=== PATIENT | female | born 1980 | race Caucasian/White ===

== ENCOUNTER 2017-12-31 17:03 | Emergency (ER) | payer OTHER, SELFPAY ==
--- NOTE | 2017-12-31 17:05 | ED.UPPEXIN ---
HPI - Extremity Injury (Upper) <MAX Ling - Last Filed: 12/31/17 22:13> General Chief Complaint: Extremity Injury, Upper Stated Complaint: 'TOOK SOFTBALL PITCH TO BOTH HANDS' Time Seen by Provider: 12/31/17 17:05 History of Present Illness HPI narrative: 37-year-old female here for complaint of pain into bilateral wrist. She she was on prior at a softball game for gross today when she was accidentally hit with a softball on of both wrist on different pitches. She denies any other injuries. Increased pain with motion of the wrists. Patient has a history of decreased sensation to both hands status post cervical neck surgery repair. No other concerns or complaints. Related Data Home Medications Medication Instructions Recorded Confirmed DICLOFENAC EPOLAMINE (FLECTOR) 1 patch TP Q DAY #0 10/13/12 duloxetine [Cymbalta] 60 mg PO Q DAY #0 10/13/12 Allergies Allergy/AdvReac Type Severity Reaction Status Date / Time ibuprofen [IBUPROFEN] Allergy Unknown Unverified 11/23/17 12:14 Review of Systems <MAX Ling - Last Filed: 12/31/17 22:13> Constitutional Denies chills, Denies fever(s), Denies lethargy and Denies weakness Eyes Denies change in vision, Denies eye discharge, Denies irritation and Denies loss of vision ENT Ears, Nose, Mouth, and Throat: Denies change in voice, Denies neck pain and Denies sore throat Cardiovascular Denies dyspnea and Denies dyspnea on exertion Respiratory Denies cough, Denies dyspnea, Denies dyspnea on exertion and Denies wheezing Genitourinary Denies hematuria, Denies flank pain, Denies urinary incontinence and Denies urinary urgency Musculoskeletal Denies neck pain Comments: Bilateral wrist pain Integumentary/Breasts Denies pruritus, Denies erythema, Denies rash and Denies wounds Neurologic Denies loss of vision and Denies weakness Allergic/Immunologic Denies wheezing Exam <MAX Ling - Last Filed: 12/31/17 22:13> Initial Vital Signs Initial Vital Signs: Vital Signs Temperature 98.8 F 12/31/17 17:16 Pulse Rate 90 12/31/17 17:16 Respiratory Rate 13 12/31/17 17:16 Blood Pressure 133/86 H 12/31/17 17:16 Pulse Oximetry 99 12/31/17 17:16 Const General: cooperative and well developed Nutritional Appearance: well nourished Orientation: alert, awake, oriented x3 and not confused [facility] Mouth: oral mucosae normal, oropharynx normal and moist mucous membranes Eyes Conjunctivae: conjunctivae normal Sclera: sclerae normal Pupils: PERRL EOM: EOM intact bilaterally Resp Effort & Inspection: normal respiratory effort, able to speak in complete sentences, no respiratory distress and no use of accessory muscles Auscultation: clear to auscultation bilaterally, no rales, no rhonchi and no wheezes Cardio Rate: regular rate Rhythm: regular rhythm Heart Sounds: no click, no gallops, no murmurs and no rubs Skin General: no rashes or lesions noted, No jaundice and No petechiae Extrem Other: Bilateral wrist with tenderness to palpation. No deformities. No ecchymosis. No swelling. Distal sensation is not intact to the fingertips which is not new finding for patient. Distal cap refill is intact. Full range of motion distally. Patient has slight discomfort a 2 bilateral anatomic snuffboxes. <Leonel Nolan, DO - Last Filed: 01/19/18 07:43> Initial Vital Signs Initial Vital Signs: Vital Signs Temperature 98.8 F 12/31/17 17:16 Pulse Rate 90 12/31/17 17:16 Respiratory Rate 13 12/31/17 17:16 Blood Pressure 133/86 H 12/31/17 17:16 Pulse Oximetry 99 12/31/17 17:16 Course <MAX Ling - Last Filed: 12/31/17 22:13> Orders Ordered: Discontinued Medications Hydrocodone Bitart/Acetaminophen ([place] 5/325) 2 tab PO NOW ONE Stop: 12/31/17 18:10 Last Admin: 12/31/17 18:27 Dose: 2 tab Hydrocodone Bitart/Acetaminophen (Vicodin Prepack) 1 bottle MISC SEEINSTR ONE Stop: 12/31/17 18:10 Last Admin: 12/31/17 18:27 Dose: 1 bottle Vital Signs - 8 hr 12/31/17 17:16 Temperature 98.8 F Pulse Rate 90 Respiratory Rate 13 Blood Pressure 133/86 H Pulse Oximetry 99 <Leonel Nolan DO - Last Filed: 01/19/18 07:43> Orders Ordered: Discontinued Medications Hydrocodone Bitart/Acetaminophen ([place] 5/325) 2 tab PO NOW ONE Stop: 12/31/17 18:10 Last Admin: 12/31/17 18:27 Dose: 2 tab Hydrocodone Bitart/Acetaminophen (Vicodin Prepack) 1 bottle MISC SEEINSTR ONE Stop: 12/31/17 18:10 Last Admin: 12/31/17 18:27 Dose: 1 bottle Vital Signs - 8 hr 12/31/17 17:16 Temperature 98.8 F Pulse Rate 90 Respiratory Rate 13 Blood Pressure 133/86 H Pulse Oximetry 99 MDM - Extremity Injury (Upper) <MAX Ling - Last Filed: 12/31/17 22:13> Imaging Data Right wrist : Radiologist's impression: PROCEDURE: XR WRIST RT MIN 3V INDICATIONS: HIT WITH BASEBALL TECHNIQUE: 4 views of the wrist were acquired. COMPARISON: None. FINDINGS: Bones: No fractures or dislocations. No suspicious bony lesions. Scaphoid view: Negative Soft tissues: No suspicious soft tissue calcifications. IMPRESSION: No acute fracture. No osseous lesion. If clinical suspicion and/or symptoms persist, further assessment with repeat plainfilms, or advanced imaging (e.g., CT, MRI, or bone scan) may be helpful for further assessment. Left wrist: Radiologist's impression: PROCEDURE: XR WRIST LT MIN 3V INDICATIONS: HIT WITH BASEBALL TECHNIQUE: 4 views of the wrist were acquired. COMPARISON: None. FINDINGS: Bones: No fractures or dislocations. No suspicious bony lesions. Scaphoid view: Negative Soft tissues: No suspicious soft tissue calcifications. IMPRESSION: No acute fracture. No osseous lesion. If clinical suspicion and/or symptoms persist, further assessment with repeat plainfilms, or advanced imaging (e.g., CT, MRI, or bone scan) may be helpful for further assessment. [facility] Narrative Medical decision making narrative: X-ray of bilateral wrist was negative for any acute fractures. Signs and symptoms presents as contusions to bilateral wrists. Do to stop box tenderness bilaterally she is placed splints bilaterally she is instructed to have repeat films in 7-10 days to rule out occult fracture. [id number] Tylenol as needed for any discomfort. Small amount of [place] is prescribed for breakthrough pain. For any worsening symptoms return to the emergency room. Discharge Plan Departure Patient Disposition: Home, Self-Care Clinical Impression: Contusion of left wrist, Contusion of right wrist Discharge Date/Time: 12/31/17 18:38 Interventions: ED Discharge Assessment Last Done: 12/31/17 18:38 Instructions: DI for Contusion Activity Restrictions/Additional Instructions: X-ray bilateral wrist was negative for any fractures. Signs and symptoms presents as a bruises/sprains of the wrist. However due to tenderness in the anatomical snuffbox area recommend wearing splints as provided until cleared by primary care have repeat films completed in 7-10 days. Use [id number] Tylenol as needed for any discomfort. Small amount of [place] was provided for breakthrough pain use as directed no driving while on the [place]. For any worsening symptoms return to the emergency room. Prescriptions: No Action duloxetine [Cymbalta] 60 MG capsule,delayed release(DR/EC) 60 mg PO Q DAY Qty: 0 RF: 0 DICLOFENAC EPOLAMINE (FLECTOR) 1 patch TP Q DAY Qty: 0 RF: 0 Referrals: [facility] [Provider Group]
--- NOTE | 2017-12-31 17:15 | DI.RAD.S_ITS ---
PROCEDURE: XR WRIST LT MIN 3V INDICATIONS: HIT WITH BASEBALL TECHNIQUE: 4 views of the wrist were acquired. COMPARISON: None. FINDINGS: Bones: No fractures or dislocations. No suspicious bony lesions. Scaphoid view: Negative Soft tissues: No suspicious soft tissue calcifications. IMPRESSION: No acute fracture. No osseous lesion. If clinical suspicion and/or symptoms persist, further assessment with repeat plainfilms, or advanced imaging (e.g., CT, MRI, or bone scan) may be helpful for further assessment. Dictated by: Pierre Sloan M.D. on 12/31/2017 at 17:46 Approved by: Pierre Sloan M.D. on 12/31/2017 at 17:47
--- NOTE | 2017-12-31 17:15 | DI.RAD.S_ITS ---
PROCEDURE: XR WRIST RT MIN 3V INDICATIONS: HIT WITH BASEBALL TECHNIQUE: 4 views of the wrist were acquired. COMPARISON: None. FINDINGS: Bones: No fractures or dislocations. No suspicious bony lesions. Scaphoid view: Negative Soft tissues: No suspicious soft tissue calcifications. IMPRESSION: No acute fracture. No osseous lesion. If clinical suspicion and/or symptoms persist, further assessment with repeat plainfilms, or advanced imaging (e.g., CT, MRI, or bone scan) may be helpful for further assessment. Dictated by: Pierre Sloan M.D. on 12/31/2017 at 17:47 Approved by: Pierre Sloan M.D. on 12/31/2017 at 17:47
[2017-12-31 17:16] VITALS: BP 133/86; PULSE 90; RESP 13; TEMP 37.1; O2SAT 99
[2017-12-31] MEDS: HYDROCODONE/ACET 5/325 PREPACK 1 BOTTLE MISC (18:27)
[2017-12-31] MEDS: HYDROCODONE/ACET 5/325 TABLET 2 TAB PO (18:27)
== END 2017-12-31 18:38 | disposition home or self-care (01) ==
PROVIDERS: Emergency Provider Nurse Practitioner Family
DX: S60.212A Contusion of left wrist, initial encounter (principal); S60.211A Contusion of right wrist, initial encounter; W21.07XA Struck by softball, initial encounter; Y93.64 Activity, baseball
CPT/HCPCS: 29260; 73110; 99283

== ENCOUNTER 2018-04-16 20:33 | Emergency (ER) | payer OTHER, SELFPAY ==
[2018-04-16 20:35] VITALS: BP 154/101; PULSE 86; RESP 18; TEMP 36.2; O2SAT 100; BMI 34.2
--- NOTE | 2018-04-16 20:45 | ED.ABDPAIN ---
HPI - Abdominal Pain General Chief Complaint: Abdominal Pain Stated Complaint: ABD PAIN,NAUSEA AND LOW GRADE FEVER Time Seen by Provider: 04/16/18 20:35 Source: patient Mode of arrival: ambulatory Limitations: no limitations History of Present Illness HPI narrative: Patient presents to the emergency department with a chief complaint of severe epigastric pain with radiation to the back for the past few days. Her pain is significantly worse when she eats or drinks. Every time she eats she gets significant pain and nausea with occasional episode of vomiting. She is not dizzy nor weak or lightheaded. She has had a low-grade subjective fever. She has been told she has gallbladder trouble in the past but has never had a complete evaluation. She denies chest pain or shortness of breath MD complaint: abdominal pain Onset (ago): day(s) Pain Consistency: intermittent Location: epigastric Severity: moderate Quality: cramping and stabbing Radiation: back Relieving factors: nothing Exacerbating factors: eating Associated symptoms: nausea and vomiting Related Data Home Medications Medication Instructions Recorded Confirmed hydrocodone-acetaminophen 1 tab PO QID PRN 04/16/18 04/16/18 naproxen sodium [Aleve] 440 mg PO BID 04/16/18 04/16/18 Previous Rx's Medication Instructions Recorded ondansetron [Zofran ODT] 4 mg PO Q6H PRN #14 tab 04/16/18 oxycodone-acetaminophen [Percocet] 1 tab PO Q4-6H PRN #20 tab 04/16/18 Allergies Allergy/AdvReac Type Severity Reaction Status Date / Time ibuprofen [IBUPROFEN] Allergy Severe Anaphylaxis Verified 04/16/18 20:38 Review of Systems Review of Systems All systems reviewed & are unremarkable except as noted in HPI and below Constitutional Denies chills, Reports fever(s), Denies lethargy and Denies weakness Eyes Denies change in vision, Denies eye discharge, Denies irritation and Denies loss of vision ENT Ears, Nose, Mouth, and Throat: Denies change in voice, Denies neck pain and Denies sore throat Cardiovascular Denies chest pain, Denies irregular heart rhythm, Denies lightheadedness, Denies palpitations, Denies dyspnea, Denies dyspnea on exertion and Denies orthopnea Respiratory Denies cough, Denies dyspnea, Denies dyspnea on exertion and Denies wheezing Gastrointestinal Gastrointestinal: Reports abdominal pain, Denies change in bowel habits, Denies diarrhea, Denies nausea and Reports vomiting Genitourinary Denies hematuria, Denies flank pain, Denies urinary incontinence and Denies urinary urgency Musculoskeletal Denies neck pain Integumentary/Breasts Denies pruritus, Denies erythema, Denies rash and Denies wounds Neurologic Denies confusion, Denies loss of vision and Denies weakness Psychiatric Denies anxiety, Denies confusion, Denies depression, Denies homicidal ideation and Denies suicidal ideation Endocrine Denies palpitations Hematologic/Lymphatic Denies easy bruising Allergic/Immunologic Denies wheezing [facility] Social History Smoking Status: Current every day smoker Exam Narrative Exam Narrative: 38-year-old female is very uncomfortable, obviously in pain Initial Vital Signs Initial Vital Signs: Vital Signs Temperature 97.1 F L 04/16/18 20:35 Pulse Rate 86 04/16/18 20:35 Respiratory Rate 18 04/16/18 20:35 Blood Pressure 154/101 H 04/16/18 20:35 Pulse Oximetry 100 04/16/18 20:35 Const General: cooperative and well developed Nutritional Appearance: well nourished Orientation: alert, awake, oriented x3 and not confused [facility] Head: normocephalic and atraumatic Ears: external ears normal and TM's normal bilaterally Nose: external nose normal and No nasal discharge Face and sinus: sinuses nontender, face symmetric, no sinus tenderness and No dry mucous membranes Mouth: oral mucosae normal and moist mucous membranes Teeth and gingiva: dentition normal Throat: tonsils normal and uvula midline Eyes General: appearance normal, both eyes and all related structures Eyelids: eyelids normal Conjunctivae: conjunctivae normal Sclera: sclerae normal Pupils: PERRL EOM: EOM intact bilaterally Neck Neck: normal visual inspection, trachea midline, No lymphadenopathy, No midline deformity and No JVD Lymphatic: No lymphedema Chest Chest: normal inspection of the chest Resp Effort & Inspection: normal respiratory effort, able to speak in complete sentences, no respiratory distress and no use of accessory muscles Auscultation: clear to auscultation bilaterally, no rales, no rhonchi and no wheezes Cardio Rate: regular rate Rhythm: regular rhythm Heart Sounds: no click, no gallops, no murmurs and no rubs Pulses: normal peripheral pulses GI Inspection: non-distended Palpation: soft, no hepatosplenomegaly, No guarding, No pulsatile mass and tender (Significant epigastric pain on palpation at Coppola's point) Auscultation: normal bowel sounds Back/Spine/Pelvis Back: No CVA tenderness Cervical Spine: cervical ROM normal and No pain with cervical ROM Thoracic/Lumbar Spine: thoracic and lumbar spine normal to inspection Skin General: no rashes or lesions noted, No jaundice and No petechiae Neuro General: alert, oriented x3, gait normal and no focal motor deficits Speech: speech normal Extrem General: full ROM, no clubbing, cyanosis or edema, no pedal edema and no calf tenderness Psych Appearance: well kempt Mental Status: mental status grossly normal Attitude: cooperative Thought Content: normal and suicidality Judgment: judgment good Course Orders Ordered: Discontinued Medications Hydromorphone HCl (Dilaudid) 0.5 mg IV NOW ONE Stop: 04/16/18 20:57 Last Admin: 04/16/18 21:07 Dose: 0.5 mg Sodium Chloride (Normal Saline 0.9%) 1,000 mls @ 1,000 mls/hr IV BOLUS ONE Stop: 04/16/18 21:55 Last Infusion: 04/16/18 23:07 Dose: 0 mls/hr Admin: 04/16/18 21:07 Dose: 1,000 mls/hr Ondansetron HCl (Zofran) 4 mg IV NOW ONE Stop: 04/16/18 20:41 Last Admin: 04/16/18 21:07 Dose: 4 mg Ondansetron HCl (Zofran) 4 mg IV NOW ONE Stop: 04/16/18 20:57 Last Admin: 04/16/18 23:07 Dose: Not Given Ondansetron HCl (Zofran Odt Prepack) 1 bottle MISC SEEINSTR ONE Stop: 04/16/18 22:44 Last Admin: 04/16/18 23:07 Dose: 1 bottle Oxycodone/Acetaminophen (Endocet 5/325 Prepack) 1 bottle MISC SEEINSTR ONE Stop: 04/16/18 22:44 Last Admin: 04/16/18 23:07 Dose: 1 bottle Vital Signs - 8 hr 04/16/18 23:08 Pulse Rate 68 Respiratory Rate 16 Blood Pressure 109/63 Pulse Oximetry 98 MDM - Abdominal Pain Differential Diagnosis Differential diagnosis: Likely abdominal pain, acute appendicitis, calculus of kidney, constipation, diverticulitis, endometriosis, gastroenteritis, pancreatitis and small bowel obstruction Medical Records Attestation: I reviewed the patient's medical records. Lab Data Attestation: I reviewed the patient's lab results. Result diagrams: 04/16/18 21:00 04/16/18 21:00 Lab Results 04/16/18 04/16/18 04/16/18 Range/Units 21:00 21:00 21:38 WBC 11.2 H (4.5-11.0) X10^3/uL RBC 5.11 (4.0-5.2) X10^6/uL Hgb 15.5 (12.0-16.0) g/dL Hct 45.7 (36-46) % MCV 89.5 (80-100) fL MCH 30.3 (26-34) PG MCHC 33.8 (30-36) % RDW 13.8 (11.6-14.8) % Plt Count 266 (150-400) X10^3/uL Neut % (Auto) 52.2 (50-75) % Lymph % (Auto) 35.1 (25-40) % [place] % (Auto) 9.5 (3-14) % Eos % (Auto) 2.1 (2-4) % Baso % (Auto) 1.1 (0-2) % Neut # (Auto) 5800 (9942-5799) /uL PT 12.1 (10.1-12.7) SECONDS INR 1.1 (0.9-1.3) APTT 32 (26.4-36.2) SECONDS Sodium 146 H (137-145) mmol/L Potassium 3.9 (3.4-5.1) mmol/L Chloride 109 H (98-107) mmol/L Carbon Dioxide 25 (22-32) mmol/L BUN 11 (7-17) mg/dL Creatinine 0.90 (0.52-1.04) mg/dL Estimated GFR > 60.0 (>60) mL/min BUN/Creatinine Ratio 12.2 (6-22) Glucose 80 (70-100) mg/dL Calcium 9.4 (8.4-10.2) mg/dL Total Bilirubin 0.4 (0.2-1.3) mg/dL AST 17 (14-36) IU/L ALT 24 (9-52) IU/L Alkaline Phosphatase 71 (38-126) U/L Total Protein 7.6 (6.3-8.2) g/dL Albumin 4.6 (3.5-5.0) g/dL Globulin 3.0 (1.7-4.1) g/dL Albumin/Globulin Ratio 1.5 (1.0-2.8) Lipase 88 (23-300) U/L Imaging Data US - abdomen: Radiologist's impression: PROCEDURE: US ABDOMEN COMPLETE INDICATIONS: SEVERE EPIGASTRIC PAIN RADIATING TO BACK TECHNIQUE: Real-time scanning was performed of the abdominal and retroperitoneal organs, with image documentation. COMPARISON: None. FINDINGS: Liver: Liver is normal in size and homogeneous in echotexture. Gallbladder: Gallbladder is sonographically normal. No gallstones. No gallbladder wall thickening. No pericholecystic fluid. No sonographic Coppola sign. Biliary ducts: Intrahepatic bile ducts are non-dilated. Extrahepatic bile duct caliber measures 5.7 mm. Normal is 6-7 mm or less in diameter, or 10 mm or less post-cholecystectomy. Pancreas: Visualized portions of the pancreas are sonographically normal. Spleen: Spleen is normal in size and homogeneous in echotexture. Kidneys: Kidneys are normal in size and echotexture. Right kidney measures 9.3 cm long; left kidney measures 10.6 cm long. No hydronephrosis or nephrolithiasis. No solid masses. Aorta: Visualized aorta is normal in caliber at less than 3 cm. Iliacs: Proximal common iliac arteries are normal in caliber at less than 2.5 cm. IVC: Intrahepatic inferior vena cava is patent. Miscellaneous: No free abdominal fluid. IMPRESSION: Normal abdominal sonogram. Dictated by: Karely Juarez MD, PhD on 04/16/2018 at 21:50 Approved by: Karely Juarez MD, PhD on 04/16/2018 at 21:51 MDM Narrative Medical decision making narrative: Patient's story and exam are highly suggestive of gallbladder disease, however given normal labs and ultrasound there is no indication of cholelithiasis or cholecystitis which would prompt an emergent or urgent surgical intervention. This raises the question of the possibility of HIDA scan in her future. We discussed the possibility of other imaging such as a CT scan but patient refuses right now Discharge Plan Departure Patient Disposition: Home Clinical Impression: Biliary colic Discharge Date/Time: 04/16/18 23:18 Interventions: ED Discharge Assessment Last Done: 04/16/18 23:08 Instructions: DI for Biliary Colic Activity Restrictions/Additional Instructions: 1. Drink plenty of fluids with frequent small sips. 2. For the next 24 hours a clear liquid diet is advised. After that please employ a brat diet which would include bananas, rice, apples, toast. 3. Please take medications as directed. 4. Please follow-up with your doctor in the next 1-2 days. Call the office for an appointment. 5. Please return to the emergency Department for any worsening or persistent symptoms, such as increasing pain or fever. Prescriptions: New ondansetron [Zofran ODT] 4 mg tablet,disintegrating 4 mg PO Q6H PRN (Reason: nausea and vomiting) Qty: 14 RF: 0 oxycodone-acetaminophen [Percocet] 5-325 mg tablet 1 tab PO Q4-6H PRN (Reason: pain) Qty: 20 RF: 0 No Action hydrocodone-acetaminophen 5-325 mg tablet 1 tab PO QID PRN (Reason: Pain (Scale Score 7-10)) RF: 0 naproxen sodium [Aleve] 220 mg Capsule 440 mg PO BID RF: 0 Referrals: Agustina Stone MD [Physician] -
--- NOTE | 2018-04-16 20:57 | DI.US.S_ITS ---
PROCEDURE: US ABDOMEN COMPLETE INDICATIONS: SEVERE EPIGASTRIC PAIN RADIATING TO BACK TECHNIQUE: Real-time scanning was performed of the abdominal and retroperitoneal organs, with image documentation. COMPARISON: None. FINDINGS: Liver: Liver is normal in size and homogeneous in echotexture. Gallbladder: Gallbladder is sonographically normal. No gallstones. No gallbladder wall thickening. No pericholecystic fluid. No sonographic Coppola sign. Biliary ducts: Intrahepatic bile ducts are non-dilated. Extrahepatic bile duct caliber measures 5.7 mm. Normal is 6-7 mm or less in diameter, or 10 mm or less post-cholecystectomy. Pancreas: Visualized portions of the pancreas are sonographically normal. Spleen: Spleen is normal in size and homogeneous in echotexture. Kidneys: Kidneys are normal in size and echotexture. Right kidney measures 9.3 cm long; left kidney measures 10.6 cm long. No hydronephrosis or nephrolithiasis. No solid masses. Aorta: Visualized aorta is normal in caliber at less than 3 cm. Iliacs: Proximal common iliac arteries are normal in caliber at less than 2.5 cm. IVC: Intrahepatic inferior vena cava is patent. Miscellaneous: No free abdominal fluid. IMPRESSION: Normal abdominal sonogram. Dictated by: Karely Juarez MD, PhD on 04/16/2018 at 21:50 Approved by: Karely Juarez MD, PhD on 04/16/2018 at 21:51
[2018-04-16] MEDS: HYDROMORPHONE 1 MG INJ 0.5 MG IV (21:07)
[2018-04-16] MEDS: SODIUM CHLORIDE 0.9% 1,000 ML 1000 ML IV (21:07)
[2018-04-16] MEDS: ONDANSETRON 4 MG/2 ML INJ IV (21:07)
[2018-04-16 21:25] LABS: Add Manual Diff / Slide Review NO; Basophils Percent Auto 1.1 % (0-2); Eosinophils Percent Auto 2.1 % (2-4); Hematocrit 45.7 % (36-46); Hemoglobin 15.5 g/dL (12.0-16.0); Lymphocytes Percent Auto 35.1 % (25-40); Mean Corpuscular HGB Conc 33.8 % (30-36); Mean Corpuscular Hemoglobin 30.3 PG (26-34); Mean Corpuscular Volume 89.5 fL (80-100); Monocytes Percent Auto 9.5 % (3-14); Neutrophils Absolute Auto 5800 /uL (3000-5900); Neutrophils Percent Auto 52.2 % (50-75); Platelet Count 266 X10^3/uL (150-400); Red Blood Cell Count 5.11 X10^6/uL (4.0-5.2); Red Cell Distribution Width 13.8 % (11.6-14.8); White Blood Cell Count 11.2 X10^3/uL (4.5-11.0)
[2018-04-16 21:28] LABS: Alanine Aminotransferase 24 IU/L (9-52); Albumin 4.6 g/dL (3.5-5.0); Albumin Globulin Ratio 1.5 (1.0-2.8); Alkaline Phosphatase 71 U/L (38-126); Aspartate Aminotransferase 17 IU/L (14-36); BUN Creatinine Ratio 12.2 (6-22); Bilirubin Total 0.4 mg/dL (0.2-1.3); Blood Urea Nitrogen 11 mg/dL (7-17); Calcium 9.4 mg/dL (8.4-10.2); Carbon Dioxide 25 mmol/L (22-32); Chloride 109 mmol/L (98-107); Estimated Glomerular Filt Rate > 60.0 mL/min (>60); Glucose 80 mg/dL (70-100); HEMOLYSIS < 15 (0-50); Lipase 88 U/L (23-300); Potassium 3.9 mmol/L (3.4-5.1); Sodium 146 mmol/L (137-145); Total Protein 7.6 g/dL (6.3-8.2)
[2018-04-16 21:53] LABS: INR 1.1 (0.9-1.3); Prothrombin Time 12.1 SECONDS (10.1-12.7)
[2018-04-16 21:56] LABS: PTT Partial Thromboplastin Tim 32 SECONDS (26.4-36.2)
[2018-04-16 22:05] VITALS: BP 114/70; PULSE 70; RESP 15; O2SAT 99
[2018-04-16] MEDS: ONDANSETRON 4 MG ODT PREPACK 1 BOTTLE MISC (23:07)
[2018-04-16] MEDS: OXYCODONE/APAP 5/325 PREPACK 1 BOTTLE MISC (23:07)
[2018-04-16 23:08] VITALS: BP 109/63; PULSE 68; RESP 16; O2SAT 98
== END 2018-04-16 23:18 | disposition home or self-care (01) ==
PROVIDERS: Emergency Provider Emergency Medicine
DX: K80.50 Calculus of bile duct without cholangitis or cholecystitis without obstruction (principal)
CPT/HCPCS: 36415; 36591; 76700; 80053; 83690; 85025; 85610; 85730; 96361; 96374; 96375; 96376; 99283; 99285; J1170; J2405

== ENCOUNTER 2020-10-03 10:16 | Emergency (ER) | payer OTHER, SELFPAY ==
[2020-10-03 10:22] VITALS: BP 172/98; PULSE 95; RESP 15; TEMP 36.9; O2SAT 99; BMI 35.4
--- NOTE | 2020-10-03 10:46 | ED.DENTAL ---
HPI - Dental/Oral <MAX Simon - Last Filed: 10/03/20 15:28> General Chief complaint: Dental/Oral Stated complaint: Upper Left side of mouth is infected (tooth) Time Seen by Provider: 10/03/20 10:35 Source: patient Mode of arrival: Ambulatory Limitations: no limitations History of Present Illness HPI Narrative: 40yo female presents to the emergency department for left-sided dental pain. Patient states she cracked a tooth filling approximately a month ago on both sides. She had a dentist appointment 2 weeks ago and fix the right side. She had an other appointment scheduled for October 29 to fix the left-sided area. However 2 days ago, the pain became increasingly worse and she noticed left-sided facial swelling. Patient was concern for infection so she called to move the appointment sooner, her dentist is currently on out on a family emergency and closes appointment is October 13. Patient states the area is very sensitive, it is difficult to open her mouth all the way to chew things due to the swelling and pain. Patient denies any fevers, chills, vomiting, diarrhea, chest pain, shortness of breath, numbness, tingling, or any other concerns. Related Data Home Medications Medication Instructions Recorded Confirmed hydrocodone-acetaminophen 1 tab PO QID PRN 04/16/18 04/16/18 naproxen sodium [Aleve] 440 mg PO BID 04/16/18 04/16/18 Previous Rx's Medication Instructions Recorded ondansetron [Zofran ODT] 4 mg PO Q6H PRN #14 tab 04/16/18 oxycodone-acetaminophen [Percocet] 1 tab PO Q4-6H PRN #20 tab 04/16/18 hydrocodone-acetaminophen [Clinton] 1 tab PO Q4-6H PRN #10 tab 10/03/20 penicillin V potassium 500 mg PO QID 7 Days #28 tab 10/03/20 Allergies Allergy/AdvReac Type Severity Reaction Status Date / Time ibuprofen [IBUPROFEN] Allergy Severe Anaphylaxis Verified 04/16/18 20:38 Review of Systems <MAX Simon - Last Filed: 10/03/20 15:28> Review of Systems Narrative: REVIEW OF SYSTEMS: GENERAL: Denies fever or chills. HENT: No head trauma. Complains of tooth pain, see HPI. CARDIOVASCULAR: No chest pain or syncope. RESPIRATORY: No shortness of breath or cough. GASTROINTESTINAL: No vomiting. GENITOURINARY: No flank pain or dysuria. MUSCULOSKELETAL: No pain, weakness, or deformities. INTEGUMENTARY: No rash. NEURO: No numbness or tingling. Patient History <MAX Simon - Last Filed: 10/03/20 15:28> Medical History No significant medical problems Social History Smoking Status: Current every day smoker Smoking Status: Current every day smoker alcohol intake frequency: holidays/special occasions only Substance Use Type: does not use Exam <MAX Simon - Last Filed: 10/03/20 15:28> Initial Vital Signs Initial Vital Signs: Vital Signs Temperature 98.4 F 10/03/20 10:22 Pulse Rate 95 H 10/03/20 10:22 Respiratory Rate 15 10/03/20 10:22 Blood Pressure 172/98 H 10/03/20 10:22 Pulse Oximetry 99 10/03/20 10:22 PHYSICAL EXAMINATION: GENERAL: Awake and alert, no distress. HENT: Normocephalic, atraumatic. Silver filling that is visibly cracked noted on tooth # 14 approximately, surrounding gingivitis, mild left sided cheek swelling without significant erythema. EYES: Conjunctiva pink, sclera white, no periorbital swelling.. RESPIRATORY: Normal respiratory rate, trachea midline, airway patent. No stridor, nasal flaring or accessory muscle use. . MUSCULOSKELETAL: Normal gait and coordination. Equal tone and mass bilaterally. EXTREMITIES: CMS intact. Moves all extremities. SKIN: Warm, dry, soft, appropriate color for ethnicity. No lesions, rashes, or wounds. NEURO: Alert and Oriented X 3. Good coordination. No ataxia, or sensory deficits, or cognitive issues. PSYCH: Appropriate affect and mood. <Mary Dykes DO - Last Filed: 10/04/20 08:02> Initial Vital Signs Initial Vital Signs: Vital Signs Temperature 98.4 F 10/03/20 10:22 Pulse Rate 95 H 10/03/20 10:22 Respiratory Rate 15 10/03/20 10:22 Blood Pressure 172/98 H 10/03/20 10:22 Pulse Oximetry 99 10/03/20 10:22 Course <AmyMAX Kramer - Last Filed: 10/03/20 15:28> Vital Signs Vital signs: Vital Signs - 8 hr 10/03/20 10:22 Temperature 98.4 F Pulse Rate 95 H Respiratory Rate 15 Blood Pressure 172/98 H Pulse Oximetry 99 <Mary Dykes DO - Last Filed: 10/04/20 08:02> Vital Signs Vital signs: Vital Signs - 8 hr 10/03/20 10:22 Temperature 98.4 F Pulse Rate 95 H Respiratory Rate 15 Blood Pressure 172/98 H Pulse Oximetry 99 MDM - Dental/Oral <Amy MXA Guerrero - Last Filed: 10/03/20 15:28> Medical Records Attestation: I reviewed the patient's medical records. Lab Data Attestation: I reviewed the patient's lab results. MDM Narrative Medical decision making narrative: History and examination concerning for dental infection given surrounding swelling. Patient was started on penicillin. She was encouraged to follow up with dentist as soon as possible. She was encouraged to take great care in eating certain foods especially on that side. Return precautions given for new or worsening symptoms. She agrees to plan of care verbalized understanding. Discharge Plan Departure Patient Disposition: Home Clinical Impression: Infected tooth Instructions: DI for Dental Pain, Tooth Fracture Activity Restrictions/Additional Instructions: Thank you for entrusting me with your care today. As discussed, it appears you have an infection surrounding your broken tooth. I prescribed you antibiotics. You have been prescribed a narcotic medication, this medication can make you drowsy. Do not drive while using this medication or perform activities that require mental alertness. These medications can also make you constipated, please use [id number] docusate sodium as needed for constipation. Do not take Tylenol with this medication as there is already Tylenol in it. These medications were sent to [facility] in [place]. Return emergency department for any new or worsening symptoms. Follow-up with your dentist as soon as possible. Prescriptions: New penicillin V potassium 500 mg tablet 500 mg PO QID 7 Days Qty: 28 RF: 0 hydrocodone-acetaminophen [Clinton] 5-325 mg tablet 1 tab PO Q4-6H PRN (Reason: pain) Qty: 10 RF: 0 No Action hydrocodone-acetaminophen 5-325 mg tablet 1 tab PO QID PRN (Reason: Pain (Scale Score 7-10)) RF: 0 naproxen sodium [Aleve] 220 mg Capsule 440 mg PO BID RF: 0 ondansetron [Zofran ODT] 4 mg tablet,disintegrating 4 mg PO Q6H PRN (Reason: nausea and vomiting) Qty: 14 RF: 0 oxycodone-acetaminophen [Percocet] 5-325 mg tablet 1 tab PO Q4-6H PRN (Reason: pain) Qty: 20 RF: 0 <Mary Dykes, - Last Filed: 10/04/20 08:02> Cosign ED Attending Nateature Attestation: I was immediately available in the department for consultation. Documentation has been reviewed. I agree with assessment and plan.
== END 2020-10-03 10:48 | disposition home or self-care (01) ==
PROVIDERS: Emergency Provider Nurse Practitioner
DX: K04.7 Periapical abscess without sinus (principal)
CPT/HCPCS: 99281